=== PATIENT | male | born 2000 | race Caucasian/White ===

== ENCOUNTER 2025-04-03 11:08 | Emergency (ER) | payer OTHER, SELFPAY ==
[2025-04-03 11:17] VITALS: BP 139/78
--- NOTE | 2025-04-03 11:39 | ED.GENMED ---
History of Present Illness
General
Chief Complaint: Abdominal Symptoms
Source: patient
Exam Limitations: none
Time Seen by Provider: 04/03/25 11:30
History of Present Illness
History of Present Illness:
24-year-old male with history of eosinophilic esophagitis presents today after eating wheeler egg and cheese sandwich with sensation of foreign body stuck in his esophagus. He was not able to tolerate his secretions. He tried drinking soda which
came right back up. On my exam he states he just recently felt it passed. He now feels better. He has not been on any antacid medications. He has not seen a GI doctor recently. No other complaints at this time
Phy Exam
Physical Exam
Physical Exam:
General: Well-appearing male no acute respiratory distress tolerating own secretions no trismus or
HEENT normal cephalic atraumatic
Heart: Regular rate and rhythm
Lungs: Clear no wheeze or stridor
Abdomen is soft nontender
Course
Vital Signs
Initial and Last Documented VS:
Initial Vital Signs
Temp Pulse Resp BP Pulse Ox
98.0 F 89 16 139/78 98
04/03/25 11:17 04/03/25 11:17 04/03/25 11:17 04/03/25 11:17 04/03/25 11:17
Last Documented Vital Signs
Temp Pulse Resp BP Pulse Ox
98.0 F 89 16 139/78 98
04/03/25 11:17 04/03/25 11:17 04/03/25 11:17 04/03/25 11:17 04/03/25 11:41
MDM/Problems Addressed
Differential Diagnosis Includes:
Patient presented initially for potential foreign body or food bolus in the esophagus that was lodged. It was lodged for some time at home however since waiting here he feels as though it fix itself. Will try oral challenge if indeed he is able to
tolerate oral fluids will start him on PPI and having follow-up with GI
*Pulse Oximetry
SaO2: 98
Oxygen Mode of Delivery: Room air
Patient hypoxic: no
*Critical Care Note
Total Time (30-74mins, 75-104mins- exclusive of procedures): Not Applicable
Update Note
Update Note:
Patient was given a glass of water and was going to be reevaluated however upon reentry into his room he has eloped from the emergency room. He left prior to receiving any discharge paperwork my recommendation I initially saw more for him to see GI
and take a PPI
ED Attending Note
-
Portions of this chart may have been created with voice recognition software.� Occasional wrong word or��sound alike� substitutions may have occurred due to the inherent limitations of voice recognition software.
Discharge Plan
Departure
Patient Disposition: Home (Routine Discharge)
Date of Disposition: 04/03/25
Time of Disposition: 12:58
Patient with high blood pressure during this ER visit?: No
Discharge Problem:
Food impaction of esophagus
Referrals:
UNKNOWN - PT DOES,NOT KNOW [Family Provider]
Activity Restrictions/Additional Instructions:
Your history would suggest you had a temporary food impaction of your esophagus that is resolved. Follow-up with GI and take omeprazole
Interventions
Interventions:
*Risk Screen - Suicide Last Done: 04/03/25 11:17
*General Assessment Last Done: 04/03/25 11:38
*Neglect/Abuse Screening Last Done: 04/03/25 11:17
*ED- Fall Risk Assessment Last Done: 04/03/25 11:38
*ED COVID-19 Vaccine History Last Done: 04/03/25 11:38
*ED Influenza Vaccine History Last Done: 04/03/25 11:38
BY-Qxcrgv-Krlmpgmswt Assessment Last Done: 04/03/25 11:42
Discharge Date and Time
Print Language: SENEGALESE
== END 2025-04-03 13:00 | disposition home or self-care (01) ==
LOC: EMR 11:08
PROVIDERS: EMERGENCY PHYSICIAN Emergency Medicine
DX: T18.128A Food in esophagus causing other injury, initial encounter (principal); W44.F3XA Food entering into or through a natural orifice, initial encounter
CPT/HCPCS: 99282